=== PATIENT | female | born 1990 | race Hispanic/Latino ===

== ENCOUNTER 2017-09-13 09:46 | Day surgery (SDC) | payer MEDICAID ==
[~2017-09-13] VITALS: Ht 160 cm; Wt 67.1 kg
[~2017-09-13 09:46] MED LIST: SODIUM CHLORIDE 0.9% 1000ML 1,000 ML IV ONE
[2017-09-13 10:10] VITALS: BP 111/71
[2017-09-13] MEDS ORDERED: POLY17PO3 PO (10:46)
== END 2017-09-13 13:40 | disposition home or self-care (01) ==
LOC: DAH 09:46 → ENDO 09:46
PROVIDERS: ATTEND Internal Medicine
DX: K59.01 Slow transit constipation (principal); F41.9 Anxiety disorder, unspecified; F32.9 Major depressive disorder, single episode, unspecified; Z98.890 Other specified postprocedural states
CPT/HCPCS: 45380; 81025; 88305; J7030